=== PATIENT | female | born 1950 | race Caucasian/White ===

== ENCOUNTER → 2017-04-17 | Outpatient (CLI) | payer MEDICARE, BC ==
[2017-04-17 16:40] LABS: BASOPHIL # 0.1 K/uL (0.0-0.2); BASOPHIL % 0.8 %; EOSINOPHIL # 0.2 K/uL (0.0-0.5); EOSINOPHIL % 2.8 %; HEMATOCRIT 39.3 % (33.0-46.0); HEMOGLOBIN 13.3 g/dL (10.0-15.0); IMMATURE GRANULOCYTE % 0.3 %; LYMPHOCYTE # 1.4 K/uL (0.8-4.0); LYMPHOCYTE % 22.1 %; MCH 32.1 pg (27.0-34.0); MCHC 33.8 gm/dL (32.0-36.5); MCV 94.9 fl (83.0-98.0); MONOCYTE # 0.4 K/uL (0.0-1.0); MONOCYTE % 6.4 %; MPV 10.1 fl (9.4-12.4); NEUTROPHIL # (ANC) 4.3 K/uL (1.8-7.8); NEUTROPHIL % 67.6 %; NRBC % 0 /100WBC (0-0.00); PLATELET COUNT 269 K/uL (150-450); RBC 4.14 M/uL (3.50-5.50); RDW-CV 12.8 % (11.9-14.6)
[2017-04-17 17:21] LABS: WBC 6.4 K/uL (4.0-11.0)
== END | disposition disaster alternative care site (69) ==
LOC: GLAB 16:16
PROVIDERS: Physician Assistant Surgical
DX: M54.5 Low back pain (principal)